=== PATIENT | male | born 1980 | race Caucasian/White ===

== ENCOUNTER → 2017-02-14 | Outpatient (REF) | payer OTHER | LOC: M SFHCLERA 15:57 | PROVIDERS: ATTEND Nurse Practitioner Family | DX: J02.9 Acute pharyngitis, unspecified (principal) ==

== ENCOUNTER → 2017-05-02 | Outpatient (REF) | payer OTHER ==
[2017-05-02 17:23] LABS: BASO % 0.6 % (0.0-1.0); EOS % 0.4 % (0.0-3.0); LARGE UNSTAINED CELL # 0.1 K/mm3 (0.0-0.4); LARGE UNSTAINED CELL % 1.2 % (0.0-4.0); LYMPH # 1.2 K/mm3 (1.5-4.5); LYMPH % 17.1 % (24.0-44.0); MEAN CORPUSCULAR HEMOGLOBIN 29.5 pg (27.0-33.0); MEAN CORPUSCULAR HGB CONC 34.7 g/dl (32.0-36.5); MONO # 0.4 K/mm3 (0.0-0.8); MONO % 5.5 % (0.0-5.0); NEUTROPHILS # 5.1 K/mm3 (1.8-7.7); NEUTROPHILS % 75.2 % (36.0-66.0); PLATELET COUNT, AUTOMATED 251 k/mm3 (150-450); RED CELL DISTRIBUTION WIDTH 12.3 % (11.5-14.5); WHITE BLOOD COUNT 6.8 K/mm3 (4.0-10.0)
[2017-05-02 20:14] LABS: ALBUMIN/GLOBULIN RATIO 1.48 (1.00-1.93); ALKALINE PHOSPHATASE 35 U/L (45-117); ALT/SGPT 25 U/L (12-78); ANION GAP 10 MEQ/L (8-16); AST/SGOT 22 U/L (15-37); BILIRUBIN,TOTAL 1.6 MG/DL (0.2-1.0); BLOOD UREA NITROGEN 24 MG/DL (7-18); CALCIUM LEVEL 8.4 MG/DL (8.5-10.1); CARBON DIOXIDE LEVEL 26 MEQ/L (21-32); CHLORIDE LEVEL 111 MEQ/L (98-107); CREATININE FOR GFR 1.06 MG/DL (0.70-1.30); GLOMERULAR FILTRATION RATE > 60.0 (>60); GLUCOSE, FASTING 88 MG/DL (70-105); POTASSIUM SERUM 3.8 MEQ/L (3.5-5.1); SODIUM LEVEL 147 MEQ/L (136-145); TOTAL PROTEIN 6.7 GM/DL (6.4-8.2)
== END ==
LOC: M LABDRAW1 15:10
PROVIDERS: ATTEND Orthopaedic Surgery
DX: M51.26 Other intervertebral disc displacement, lumbar region (principal)

== ENCOUNTER → 2018-04-11 | Outpatient (REF) | payer OTHER ==
[2018-04-11 14:33] LABS: CHLAMYDIA DNA AMPLIFICATION NEGATIVE (NEGATIVE); GC DNA AMPLIFICATION NEGATIVE (NEGATIVE)
[2018-04-12 10:00] LABS: HIV 1&2 SCREEN CENTAUR NEGATIVE (NEGATIVE)
== END ==
LOC: M LAB REF 11:54
DX: Z11.3 Encounter for screening for infections with a predominantly sexual mode of transmission (principal); Z11.4 Encounter for screening for human immunodeficiency virus [HIV]

== ENCOUNTER → 2019-02-02 | Outpatient (REF) | payer OTHER | LOC: M SFHCLERA 14:42 | PROVIDERS: ATTEND Nurse Practitioner Family | DX: J02.9 Acute pharyngitis, unspecified (principal) ==

== ENCOUNTER → 2019-09-07 | Outpatient (REF) | payer OTHER ==
[2019-09-07 12:03] LABS: PLATELET COUNT, AUTOMATED 247 10^3/uL (150-450)
[2019-09-07 12:17] LABS: INR 1.03; PROTHROMBIN TIME 13.2 SECONDS (11.8-14.0)
[2019-09-07 12:18] LABS: PARTIAL THROMBOPLASTIN TIME 30.4 SECONDS (25.0-38.4)
[2019-09-07 12:28] LABS: ERYTHROCYTE SEDIMENTATION RATE 1 mm/hr (0-15)
== END ==
LOC: M LABDRAW1 11:43
PROVIDERS: ATTEND Physical Medicine & Rehabilitation
DX: Z01.812 Encounter for preprocedural laboratory examination (principal)

== ENCOUNTER → 2021-08-31 | Outpatient (CLI) | payer OTHER ==
--- NOTE | 2021-09-01 14:30 | REP ---
INDICATION: ATRAUMATIC PAIN COMPARISON: None. TECHNIQUE: Coronal oblique T1 and fat suppressed T2. Sagittal oblique fat suppressed T2. Axial hchlb-bhehboir-ivgh and T2 FLASH. FINDINGS: There is mild to moderate hypertrophic degenerative change seen involving the acromioclavicular joint. The acromion process is a minimal type 2. There is patchy and linear T2 hyper signal seen in the supraspinatus tendon. Normal appearing low signal is seen throughout the subscapularis, infraspinatus, and teres minor tendons. The biceps tendon resides within the bicipital groove. There is no glenohumeral joint effusion. There is no abnormal fluid in the subcoracoid recess. The coracoacromial ligament appears slightly thickened. IMPRESSION: 1. AC joint changes as described above with mild coracoacromial ligamentous thickening suggesting the possibility of the clinical diagnosis of impingement syndrome. 2. There is mild supraspinatus tendinitis/tendinosis. 3. Other findings as described above. <Electronically signed by Barney Pelaez > 09/01/21 [id number]
--- NOTE | 2021-09-01 20:34 | REPVR ---
PROCEDURE INFORMATION: Exam: MR Cervical Spine Without Contrast Exam date and time: 08/31/2021 3:43 PM Age: 40 years old Clinical indication: Neck pain TECHNIQUE: Imaging protocol: Multiplanar magnetic resonance images of the cervical spine without contrast. COMPARISON: No relevant prior studies available. FINDINGS: Cervical vertebral body heights are intact. The dens is intact. No abnormal marrow signal. No cord compression, expansion, or abnormal cord signal. Visualized structures of the posterior fossa are unremarkable. Soft tissues are unremarkable. C2-C3: No significant canal or foraminal narrowing. C3-C4: Uncovertebral spurring causes mild right and moderate left foraminal narrowing. No significant canal narrowing. C4-C5: Facet hypertrophy causes mild left foraminal narrowing. No significant canal narrowing. C5-C6: Facet hypertrophy causes mild left foraminal narrowing. No significant canal narrowing. C6-C7: No significant canal or foraminal narrowing. C7-T1: No significant canal or foraminal narrowing. 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 Electronically signed by: Prudencio Vaca On 09/01/2021 20:34:15 PM
== END ==
LOC: M PLAIMG 14:25
PROVIDERS: ATTEND Orthopaedic Surgery
DX: M50.30 Other cervical disc degeneration, unspecified cervical region (principal); M75.21 Bicipital tendinitis, right shoulder

== ENCOUNTER → 2021-09-08 | Outpatient (REF) | payer OTHER ==
[2021-09-08 17:02] LABS: C REACTIVE PROTEIN QUANTITATIV < 0.30 MG/DL (0.00-0.30); RHEUMATOID FACTOR QUANT < 10.0 IU/ML (<15.0)
[2021-09-17 16:10] LABS: ANTINUCLEAR ANTIBODIES DIRECT Negative (Negative); HLA-B27 Negative (.)
== END ==
LOC: M LAB REF 16:14
PROVIDERS: ATTEND Nurse Practitioner Adult Health
DX: M47.892 Other spondylosis, cervical region (principal)

== ENCOUNTER → 2022-02-03 | Outpatient (REF) | payer OTHER | LOC: M LAB REF 12:00 | PROVIDERS: ATTEND Nurse Practitioner Adult Health | DX: J02.9 Acute pharyngitis, unspecified (principal) ==

== ENCOUNTER → 2022-11-04 | Outpatient (REF) | payer OTHER ==
[2022-11-04 16:38] LABS: HEMATOCRIT 43.1 % (42.0-52.0)
[2022-11-04 16:41] LABS: IRON (FE) 55 UG/DL (65-175); PERCENT SATURATION 17.8 % (19.7-50.0); TOTAL IRON BINDING CAPACITY 309 UG/DL (250-425)
[2022-11-04 16:44] LABS: FERRITIN 211.8 NG/ML (10.5-307.3)
[2022-11-04 16:56] LABS: HEPATITIS B SURFACE ANTIGEN NEGATIVE (NEGATIVE)
[2022-11-04 17:16] LABS: HEPATITIS B CORE ANTIBODY IGM NEGATIVE (NEGATIVE)
== END ==
LOC: M LAB REF 16:12
PROVIDERS: ATTEND Nurse Practitioner Adult Health
DX: R74.01 Elevation of levels of liver transaminase levels (principal)

== ENCOUNTER → 2022-11-22 | Outpatient (CLI) | payer OTHER | LOC: M RAD 06:25 | PROVIDERS: ATTEND Nurse Practitioner Adult Health | DX: R74.8 Abnormal levels of other serum enzymes (principal); K82.4 Cholesterolosis of gallbladder; R93.3 Abnormal findings on diagnostic imaging of other parts of digestive tract ==

== ENCOUNTER → 2023-09-14 | Outpatient (REF) | payer OTHER ==
[2023-09-14 18:50] LABS: HEMATOCRIT 42.3 % (42.0-52.0)
[2023-09-14 19:27] LABS: FERRITIN 259.6 NG/ML (10.5-307.3); PERCENT SATURATION 24.1 % (19.7-50.0)
== END ==
LOC: M LAB REF 17:17
PROVIDERS: ATTEND Nurse Practitioner Adult Health
DX: R74.01 Elevation of levels of liver transaminase levels (principal); K76.0 Fatty (change of) liver, not elsewhere classified

== ENCOUNTER → 2024-01-16 | Outpatient (REF) | payer OTHER | LOC: M LAB REF 16:05 | PROVIDERS: ATTEND Nurse Practitioner Adult Health | DX: K58.8 Other irritable bowel syndrome (principal) ==